=== PATIENT | female | born 1970 | race Two or more races ===

== ENCOUNTER 2018-06-16 08:43 | Emergency (ER) | payer SELFPAY ==
[~2018-06-16] VITALS: Ht 134.6 cm; Wt 78.1 kg
[2018-06-16 08:59] VITALS: BP 103/61
[2018-06-16] MEDS ORDERED: IBUPROFEN 400 MG TABLET PO ONE (09:00)
[2018-06-16] MEDS ORDERED: IBUPROFEN 400 MG TABLET ONE (09:03)
== END 2018-06-16 10:05 | disposition home or self-care (01) ==
LOC: ER 08:46
DX: S39.012A Strain of muscle, fascia and tendon of lower back, initial encounter (principal); S30.1XXA Contusion of abdominal wall, initial encounter; Z79.899 Other long term (current) drug therapy; V49.49XA Driver injured in collision with other motor vehicles in traffic accident, initial encounter; Y93.89 Activity, other specified; Y92.413 State road as the place of occurrence of the external cause; Y99.8 Other external cause status
CPT/HCPCS: 72100; 72170; 99284; A4606; Z7610